=== PATIENT | male | born 2005 | race Caucasian/White ===

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

== ENCOUNTER → 2023-03-05 | Outpatient (REF) | payer OTHER ==
[2023-03-05 13:54] LABS: FREE T4 1.05 NG/DL (0.83-1.43); THYROID STIMULATING HORMONE 2.46 uIU/ML (0.48-4.17)
== END ==
LOC: M SFHCADAM 08:52
PROVIDERS: ATTEND Family Medicine
DX: R94.6 Abnormal results of thyroid function studies (principal)